=== PATIENT | male | born 1995 | race Asian ===

== ENCOUNTER 2017-05-26 15:34 | Emergency (ER) | payer OTHER ==
[~2017-05-26] VITALS: Ht 172.7 cm; Wt 81.6 kg
[2017-05-26 15:40] VITALS: TEMP 97
[2017-05-26 16:34] VITALS: BP 132/92
== END 2017-05-26 16:34 | disposition home or self-care (01) ==
LOC: ED 15:34
DX: H11.31 Conjunctival hemorrhage, right eye (principal)
CPT/HCPCS: 99281

== ENCOUNTER 2019-08-01 16:31 | Emergency (ER) | payer OTHER ==
[~2019-08-01] VITALS: Ht 172.7 cm; Wt 81.6 kg
[2019-08-01 17:37] VITALS: BP 144/86; TEMP 98.7
== END 2019-08-01 17:37 | disposition home or self-care (01) ==
LOC: ED 16:31
DX: M79.18 Myalgia, other site (principal); V45.5XXA Car driver injured in collision with railway train or railway vehicle in traffic accident, initial encounter; Y92.89 Other specified places as the place of occurrence of the external cause
CPT/HCPCS: 99282

== ENCOUNTER 2019-10-04 12:48 | Emergency (ER) | payer OTHER ==
[~2019-10-04] VITALS: Ht 172.7 cm; Wt 79.4 kg
[2019-10-04 12:54] VITALS: TEMP 98.9
[2019-10-04 13:47] LABS: PLATELET COUNT 248 K/uL (142-355)
[2019-10-04 13:53] LABS: POTASSIUM 4.1 mmol/L (3.6-5.2)
[2019-10-04 16:27] VITALS: BP 128/78
== END 2019-10-04 16:27 | disposition home or self-care (01) ==
LOC: ED 12:48
PROVIDERS: Family Medicine
DX: S39.012A Strain of muscle, fascia and tendon of lower back, initial encounter (principal)
CPT/HCPCS: 80053; 81000; 85027; 96372; 99283; J1885

== ENCOUNTER 2022-10-06 19:15 | Emergency (ER) | payer OTHER ==
[~2022-10-06] VITALS: Ht 172.7 cm; Wt 83.9 kg
[2022-10-06 20:55] VITALS: BP 132/76; TEMP 97.9
== END 2022-10-06 20:55 | disposition home or self-care (01) ==
LOC: ED 19:15
PROC: 0HQ3XZZ Repair Left Ear Skin, External Approach (ICD-10-PCS; principal; 2022-10-06)
DX: S01.312A Laceration without foreign body of left ear, initial encounter (principal); X58.XXXA Exposure to other specified factors, initial encounter; Y93.9 Activity, unspecified; Y92.9 Unspecified place or not applicable; Y99.9 Unspecified external cause status
CPT/HCPCS: 90471; 90715; 99283